=== PATIENT | female | born 1935 | race Caucasian/White ===

== ENCOUNTER 2016-06-29 08:42 | Inpatient (IN) | payer OTHER, MEDICAID ==
[2016-06-29] MEDS ORDERED: ONDANSETRON 4 MG/2 ML VIAL ONE (08:55)
[2016-06-29] MEDS ORDERED: NS 1,000 ML IV ONE ×2 (08:55→09:07)
--- NOTE | 2016-06-29 09:34 | CPEKG ---
Heart Rate: 59 RR Interval: 1017 P-R Interval: 168 QRSD Interval: 84 QT Interval: 460 QTC Interval: 456 P Juncos: 71 QRS Juncos: 49 T Wave Juncos: 67 EKG Severity - NORMAL ECG - EKG Impression: SINUS RHYTHM EKG Impression: Agree with above Electronically Signed By: Zane Noel 02-Jul-2016 18:37:58
--- NOTE | 2016-06-29 09:40 | EDPHY ---
HPI/HX/ROS/PE/MDM Narrative: CHIEF COMPLAINT: Possible GI bleed HPI: The patient is an 81 y/o female, with a history of recent GI bleed, arriving with her sons with concern for further GI bleeding. She has a history of carcinoid tumors and multiple surgeries related to this. Two weeks ago she had multiple syncopes and was admitted to [facility]. During that stay, endoscopy revealed an esophageal ulcer and small intestine bleeding. Her sons deny blood in her stool over the last week and report her Hgb increased from 7.2 to 10.0 during this time. Yesterday, she was feeling relative well and able to walk and engage in activities normally. This morning, she was weak, fatigued , and pale according to her sons. She has associated nausea and at least one episode of dry heaving. She did take her normal labetalol and aspirin this morning. She does not take anticoagulants. History obtained primarily from patient's sons as she does not speak Slovenian. They also translated discussion for patient. REVIEW OF SYSTEMS: Aside from elements discussed in the HPI, a comprehensive 10-point review of systems was reviewed and is negative. PMH: Hypertension - labetalol, carcinoid tumor, tumor surgeries x3, gastric bypass by Dr. Mccollum, cholecystectomy by Dr. Ross, esophageal ulcer, GI bleed - small intestine SOCIAL HISTORY: Sons at bedside, who are translating for the patient PHYSICAL EXAM: General:Patient appears tired and pale, but is sitting up in no acute distress. Initial BP 55/30 ENT:Eyes are normal to inspection. ENT inspection normal. Neck: Normal inspection. Full range of motion. Respiratory:No respiratory distress. Breath sounds normal bilaterally. Cardiovascular: Regular rate and rhythm. Strong peripheral pulses. Normal cap refill. Abdomen:The abdomen is nontender to palpation. There are no peritoneal signs. There are normal bowel sounds. Back: Normal to inspection. No tenderness to palpation. Skin: Pale. No rash. Warm and dry. Extremities: Normal appearance. Full range of motion. Neuro: Mentating appropriately. Normal motor function. Normal sensory function. ED Course: 849: Patient is hypotensive at 55/30 on initial assessment. She also appears pale and fatigued, but is still mentating appropriately. Her abdomen is benign. Plan for second IV if patient requires transfusion. Records from [facility]' s requested. 0855: ISTAT shows Hgb 11.9 and Hct 35. This makes it less likely her symptoms are due to blood loss. We will still type & screen her given her history of GI bleeds and pronounced hypotension. EKG ordered. Plan for admission as she will likely require another endoscope and close management of her pressure. 0900: The 12 lead EKG was interpreted by myself. Sinus rhythm rate 59. See hard copy and/or "tracemaster" electronic copy for interpretation. 0935: BP has improved to 105/46 after 800mL IV NS. 0956: Reassessed patient. She is resting comfortably. Her abdomen remains benign. Her BP has improved to 118/47. Labs show Hgb 9.9 and Hct 29. 1025: RN informs me patient has been increasing her labetalol dosing in the last few weeks, which could relate to her recent syncopes and symptoms today. 1035: Spoke with hospitalist service. Dr. Daily accepts admission. 1038: Spoke with RN from Dr. Ross office to update them on patient condition. They will consult on her during admission. I personally spent a total of 45 minutes of critical care time in obtaining history, performing a physical exam, bedside monitoring of interventions, collecting and interpreting tests and discussion with consultants but not including time spent performing procedures. This time was exclusive of any involvement by Physician Orthopaedic Physician Assistant. Organ system(s) at risk include: brain, cardiovascular system. MDM: This patient presents with severe hypotension and pallor in the setting of recent GI bleed. Somewhat surprisingly, her Hct is essentially unchanged, and given light brown stool present on patient's legs, I doubt her BP is secondary to acute blood loss. She is afebrile and has no infectious symptoms, so I highly doubt sepsis or septic shock. I suspect the etiology of patient's hypotension is likely over-beta blocking, not helped by taking a dose this morning. Her BP has responded well to IVNS. She will require admission for continued monitoring and workup. - Data Points Laboratory Results: Laboratory Results 06/29/16 09:40 06/29/16 09:55 06/29/16 06/29/16 06/29/16 09:55 09:55 09:55 WBC RBC Hgb POC Hgb Hct POC Hct MCV MCH MCHC RDW Plt Count MPV Neut % (Auto) Lymph % (Auto) [place] % (Auto) Eos % (Auto) Baso % (Auto) Nucleat RBC Rel Count Absolute Neuts (auto) Absolute Lymphs (auto) Absolute Monos (auto) Absolute Eos (auto) Absolute Basos (auto) Absolute Nucleated RBC Immature Gran % Immature Gran # PT 15.1 SEC H SEC (12.0-15.0) INR 1.19 H (0.83-1.16) APTT 23.0 SEC SEC (23.0-38.0) POC Sodium Sodium 144 mEq/L mEq/L (134-144) POC Potassium Potassium 4.2 mEq/L mEq/L (3.5-5.2) POC Chloride Chloride 111 mEq/L H mEq/L (97-110) Carbon Dioxide 23 mEq/l mEq/l (22-31) Anion Gap 10 mEq/L mEq/L (8-16) POC BUN BUN 17 mg/dL mg/dL (7-23) Creatinine 1.0 mg/dL mg/dL (0.6-1.0) POC Creatinine Estimated GFR 53 Glucose 105 mg/dL H mg/dL (70-100) POC Glucose Calcium 8.7 mg/dL mg/dL (8.5-10.4) Troponin I < 0.012 ng/mL ng/mL (0-0.034) Patient ABO/Rh A POSITIVE Antibody Screen NEGATIVE 06/29/16 06/29/16 06/29/16 09:40 09:32 08:56 WBC 4.19 10^3/uL 10^3/uL (3.80-9.50) RBC 3.24 10^6/uL L 10^6/uL (4.18-5.33) Hgb 9.8 g/dL L g/dL (12.6-16.3) POC Hgb 9.9 gm/dL L gm/dL 11.9 gm/dL L gm/dL (12.3-15.9) (12.3-15.9) Hct 31.9 % L % (38.0-47.0) POC Hct 29 % L % 35 % L % (35.5-47.5) (35.5-47.5) MCV 98.5 fL fL (81.5-99.8) MCH 30.2 pg pg (27.9-34.1) MCHC 30.7 g/dL L g/dL (32.4-36.7) RDW 14.6 % % (11.5-15.2) Plt Count 217 10^3/uL 10^3/uL (150-400) MPV 10.5 fL fL (8.7-11.7) Neut % (Auto) 74.2 % % (39.3-74.2) Lymph % (Auto) 16.7 % % (15.0-45.0) Nobles % (Auto) 5.7 % % (4.5-13.0) Eos % (Auto) 2.4 % % (0.6-7.6) Baso % (Auto) 0.5 % % (0.3-1.7) Nucleat RBC Rel Count 0.0 % % (0.0-0.2) Absolute Neuts (auto) 3.11 10^3/uL 10^3/uL (1.70-6.50) Absolute Lymphs (auto) 0.70 10^3/uL L 10^3/uL (1.00-3.00) Absolute Monos (auto) 0.24 10^3/uL L 10^3/uL (0.30-0.80) Absolute Eos (auto) 0.10 10^3/uL 10^3/uL (0.03-0.40) Absolute Basos (auto) 0.02 10^3/uL 10^3/uL (0.02-0.10) Absolute Nucleated RBC 0.00 10^3/uL 10^3/uL (0-0.01) Immature Gran % 0.5 % % (0.0-1.1) Immature Gran # 0.02 10^3/uL 10^3/uL (0.00-0.10) PT INR APTT POC Sodium 144 mEq/L mEq/L 145 mEq/L H mEq/L (134-144) (134-144) Sodium POC Potassium 5.7 mEq/L H mEq/L 4.0 mEq/L mEq/L (3.3-5.0) (3.3-5.0) Potassium POC Chloride 111 mEq/L H mEq/L 108 mEq/L mEq/L (96-108) (96-108) Chloride Carbon Dioxide Anion Gap POC BUN 21 mg/dL mg/dL 18 mg/dL mg/dL (7-23) (7-23) BUN Creatinine POC Creatinine 1.1 mg/dL mg/dL 1.2 mg/dL mg/dL (0.6-1.2) (0.6-1.2) Estimated GFR Glucose POC Glucose 123 mg/dL H mg/dL 144 mg/dL H mg/dL (70-100) (70-100) Calcium Troponin I Patient ABO/Rh Antibody Screen Medications Given: Discontinued Medications Sodium Chloride (Ns) 1,000 mls @ 0 mls/hr IV ONCE ONE PRN Reason: Wide Open Stop: 06/29/16 08:56 Last Admin: 06/29/16 09:00 Dose: 1,000 mls Sodium Chloride (Ns) 1,000 mls @ 0 mls/hr IV ONCE ONE PRN Reason: Wide Open Stop: 06/29/16 09:08 Last Admin: 06/29/16 09:10 Dose: 1,000 mls Point of Care Test Results: 06/29/16 06/29/16 08:56 09:32 POC Sodium 145 H 144 POC Potassium 4.0 5.7 H POC Chloride 108 111 H POC BUN 18 21 POC Creatinine 1.2 1.1 POC Glucose 144 H 123 H General Time Seen by Provider: 06/29/16 08:51 Initial Vital Signs: Initial Vital Signs Temperature (C) 36.8 C 06/29/16 08:45 Heart Rate 64 06/29/16 08:45 Respiratory Rate 22 H 06/29/16 08:45 O2 Sat (%) 98 06/29/16 08:45 O2 Delivery Mode Nasal Cannula O2 (L/minute) 2 Allergies/Adverse Reactions: b12 Allergy (Uncoded 06/29/16 08:44) Home Medications: Medication Instructions Recorded Aspirin [Aspirin 81mg (*)] 81 mg PO DAILY 06/29/16 Ferrous Sulfate [Ferrous Sulf 325 325 mg PO DAILY 06/29/16 MG (*)] Herbals/Supplements -Info Only 1 ea PO DAILY 06/29/16 Labetalol HCl [Trandate 200 mg (*)] 200 mg PO BID 06/29/16 Losartan Potassium [Cozaar 50 mg 50 mg PO DAILY@12 06/29/16 (*)] Multivitamins [Multivitamin (*)] 1 each PO DAILY 06/29/16 [place]-3 Fatty Acids [Fish Oil 1000 1,000 mg PO DAILY 06/29/16 mg (*)] Departure - Departure Disposition: [facility] Inpatient Acute Clinical Impression: Hypotension Qualifiers: Hypotension type: other hypotension type Qualified Code(s): I95.89 - Other hypotension Anemia Qualifiers: Anemia type: other cause Other causes of anemia: other cause, not classified Qualified Code(s): D64.89 - Other specified anemias Condition: Fair Report Scribed for: Efra Subramanian Report Scribed by: Jael Mendez Date of Report: 06/29/16 Time of Report: 09:40 Physician Review and Approval Statement: Portions of this note were transcribed by an ED scribe. I personally performed the history, physical exam, and medical decision making; and confirm the accuracy of the information in the transcribed note.
[2016-06-29 09:45] LABS: % IMMATURE GRANULYOCYTES 0.5 % (0.0-1.1); ABSOLUTE IMMATURE GRANULOCYTES 0.02 10^3/uL (0.00-0.10); ADD DIFF? NO; ADD MORPH? NO; ADD SCAN? NO; ATYPICAL LYMPHOCYTE FLAG 20 (0-99); FRAGMENT RBC FLAG 0 (0-99); HEMATOCRIT 31.9 % (38.0-47.0); HEMOGLOBIN 9.8 g/dL (12.6-16.3); LEFT SHIFT FLG 0 (0-99); LIPEMIA HEMOLYSIS FLAG 80 (0-99); MEAN CELL HEMOGLOBIN 30.2 pg (27.9-34.1); MEAN CELL HEMOGLOBIN CONCENTR. 30.7 g/dL (32.4-36.7); MEAN CELL VOLUME 98.5 fL (81.5-99.8); MEAN PLATELET VOLUME 10.5 fL (8.7-11.7); PLATELET CLUMPS FLAG 0 (0-99); PLATELET COUNT 217 10^3/uL (150-400); RED BLOOD CELL COUNT 3.24 10^6/uL (4.18-5.33); RED CELL DISTRIBUTION WIDTH 14.6 % (11.5-15.2)
[2016-06-29 10:40] LABS: INR 1.19 (0.83-1.16); PROTIME(PATIENT) 15.1 SEC (12.0-15.0)
[2016-06-29 10:50] LABS: ANION GAP 10 mEq/L (8-16); CALCIUM 8.7 mg/dL (8.5-10.4); CARBON DIOXIDE 23 mEq/l (22-31); CHLORIDE 111 mEq/L (97-110); GLOMERULAR FILTRATION RATE 53; GLUCOSE 105 mg/dL (70-100); POTASSIUM 4.2 mEq/L (3.5-5.2); SODIUM 144 mEq/L (134-144)
[2016-06-29 11:00] LABS: TROPONIN I < 0.012 ng/mL (0-0.034)
[2016-06-29] MEDS ORDERED: ACETAMINOPHEN 325 MG TAB PO PRN (12:03)
[2016-06-29] MEDS ORDERED: ONDANSETRON 4 MG/2 ML VIAL IVP PRN (12:03)
[2016-06-29] MEDS ORDERED: ONDANSETRON DISINTEGRATING 4 MG TAB PO PRN (12:03)
--- NOTE | 2016-06-29 12:26 | PDGENHP ---
History and Physical - Chief Complaint Acute weakness - History of Present Illness Primary care provider: Dr. Gracia Primary senior engineer: Dr. Stoddard Primary general surgeon: Dr. Ross HPI: 81-year-old female presenting with acute weakness characterized as generalized fatigue with associated nausea, dry heaving, pale appearance, onset of symptoms on the morning of presentation and duration persistent thereafter. Patient had reportedly been feeling well on the day prior to this presentation. Weakness was exacerbated by attempting to ambulate and engaging in any activity. The patient took her last dose of losartan yesterday her last dose of labetalol this morning. She has had 1 brown bowel movement. She was eating and drinking normally prior to onset of symptoms. Notably, she was discharged from [facility] yesterday. History Information - Allergies/Home Medication List Allergies/Adverse Reactions: b12 Allergy (Uncoded 06/29/16 08:44) Home Medications: Aspirin [Aspirin 81mg (*)] 81 mg PO DAILY 06/29/16 [Last Taken 06/29/16] Ferrous Sulfate [Ferrous Sulf 325 MG (*)] 325 mg PO DAILY 06/29/16 [Last Taken Unknown] Herbals/Supplements -Info Only 1 ea PO DAILY 06/29/16 [Last Taken Unknown] Labetalol HCl [Trandate 200 mg (*)] 200 mg PO BID 06/29/16 [Last Taken 06/29/16] Losartan Potassium [Cozaar 50 mg (*)] 50 mg PO DAILY@12 06/29/16 [Last Taken ] Multivitamins [Multivitamin (*)] 1 each PO DAILY 06/29/16 [Last Taken Unknown] [place]-3 Fatty Acids [Fish Oil 1000 mg (*)] 1,000 mg PO DAILY 06/29/16 [Last Taken Unknown] I have personally reviewed and updated: family history, medical history, social history, surgical history - Past Medical History hypertension (Challenging to control) Additional medical history: Carcinoid tumor. Esophageal ulcer. Acute blood loss anemia most recent hemoglobin level 10 - Surgical History Reports: cholecystectomy Additional surgical history: Gastric bypass. Tumor surgery x3 - Family History Additional family history: No recent sick family contacts - Social History Smoking Status: Never smoked Alcohol Use: None Drug Use: None Additional social history: Lives with her son, normally independent in ADLs Review of Systems ROS: 10pt was reviewed & negative except for what was stated in HPI & below Constitutional: Reports: weakness, other (Fatigue) Gastrointestinal: Reports: vomitting, nausea Physical Exam Temp Pulse Resp BP Pulse Ox 37.2 C 61 15 128/80 H 97 06/29/16 12:00 06/29/16 12:00 06/29/16 12:00 06/29/16 12:00 06/29/16 12:00 O2 (L/minute) 2 Constitutional: no apparent distress, appears nourished, not in pain Eyes: PERRL, anicteric sclera, EOMI Ears, Nose, Mouth, Throat: moist mucous membranes, hearing normal, ears appear normal, no oral mucosal ulcers Cardiovascular: regular rate and rhythym, systolic murmur (2/6 at the sternum), No tachycardia, No edema Respiratory: no respiratory distress, no rales or rhonchi, clear to auscultation Gastrointestinal: normoactive bowel sounds, soft, non-tender abdomen, no palpable masses Genitourinary: no bladder fullness, no bladder tenderness Neurologic: AAOx3, sensation intact bilaterally, No weakness (Motor strength 5/ 5 bilaterally) Psychiatric: interacting appropriately, not anxious, not encephalopathic, thought process linear Lymph, Heme, Immunologic: no cervical LAD, no supraclavicular LAD Lab Data & Imaging Review 06/29/16 09:40 06/29/16 09:55 WBC 4.19 10^3/uL (3.80-9.50) 06/29/16 09:40 RBC 3.24 10^6/uL (4.18-5.33) L 06/29/16 09:40 Hgb 9.8 g/dL (12.6-16.3) L 06/29/16 09:40 POC Hgb 9.9 gm/dL (12.3-15.9) L 06/29/16 09:32 Hct 31.9 % (38.0-47.0) L 06/29/16 09:40 POC Hct 29 % (35.5-47.5) L 06/29/16 09:32 MCV 98.5 fL (81.5-99.8) 06/29/16 09:40 MCH 30.2 pg (27.9-34.1) 06/29/16 09:40 MCHC 30.7 g/dL (32.4-36.7) L 06/29/16 09:40 RDW 14.6 % (11.5-15.2) 06/29/16 09:40 Plt Count 217 10^3/uL (150-400) 06/29/16 09:40 MPV 10.5 fL (8.7-11.7) 06/29/16 09:40 Neut % (Auto) 74.2 % (39.3-74.2) 06/29/16 09:40 Lymph % (Auto) 16.7 % (15.0-45.0) 06/29/16 09:40 [place] % (Auto) 5.7 % (4.5-13.0) 06/29/16 09:40 Eos % (Auto) 2.4 % (0.6-7.6) 06/29/16 09:40 Baso % (Auto) 0.5 % (0.3-1.7) 06/29/16 09:40 Nucleat RBC Rel Count 0.0 % (0.0-0.2) 06/29/16 09:40 Absolute Neuts (auto) 3.11 10^3/uL (1.70-6.50) 06/29/16 09:40 Absolute Lymphs (auto) 0.70 10^3/uL (1.00-3.00) L 06/29/16 09:40 Absolute Monos (auto) 0.24 10^3/uL (0.30-0.80) L 06/29/16 09:40 Absolute Eos (auto) 0.10 10^3/uL (0.03-0.40) 06/29/16 09:40 Absolute Basos (auto) 0.02 10^3/uL (0.02-0.10) 06/29/16 09:40 Absolute Nucleated RBC 0.00 10^3/uL (0-0.01) 06/29/16 09:40 Immature Gran % 0.5 % (0.0-1.1) 06/29/16 09:40 Immature Gran # 0.02 10^3/uL (0.00-0.10) 06/29/16 09:40 PT 15.1 SEC (12.0-15.0) H 06/29/16 09:55 INR 1.19 (0.83-1.16) H 06/29/16 09:55 APTT 23.0 SEC (23.0-38.0) 06/29/16 09:55 POC Sodium 144 mEq/L (134-144) 06/29/16 09:32 Sodium 144 mEq/L (134-144) 06/29/16 09:55 POC Potassium 5.7 mEq/L (3.3-5.0) H 06/29/16 09:32 Potassium 4.2 mEq/L (3.5-5.2) 06/29/16 09:55 POC Chloride 111 mEq/L (96-108) H 06/29/16 09:32 Chloride 111 mEq/L (97-110) H 06/29/16 09:55 Carbon Dioxide 23 mEq/l (22-31) 06/29/16 09:55 Anion Gap 10 mEq/L (8-16) 06/29/16 09:55 POC BUN 21 mg/dL (7-23) 06/29/16 09:32 BUN 17 mg/dL (7-23) 06/29/16 09:55 Creatinine 1.0 mg/dL (0.6-1.0) 06/29/16 09:55 POC Creatinine 1.1 mg/dL (0.6-1.2) 06/29/16 09:32 Estimated GFR 53 06/29/16 09:55 Glucose 105 mg/dL (70-100) H 06/29/16 09:55 POC Glucose 123 mg/dL (70-100) H 06/29/16 09:32 Calcium 8.7 mg/dL (8.5-10.4) 06/29/16 09:55 Troponin I < 0.012 ng/mL (0-0.034) 06/29/16 09:55 Patient ABO/Rh A POSITIVE 06/29/16 09:55 Antibody Screen NEGATIVE 06/29/16 09:55 Visualized and Interpreted EKG results: Yes EKG Interpretation: Positive for: other (Normal sinus rhythm) Assessment & Plan Assessment: 81-year-old female presenting with acute hypotension in the setting of recent gastrointestinal hemorrhage Plan: 1. Hypotension. Acute, new problem this provider, further workup is indicated. Evidenced by systolic blood pressure 55 on presentation, receiving 800 cc of normal saline thereafter, resulting in a systolic blood pressure of 105. -suspect this is medication induced and secondary to the cumulative effects of her ARB and beta-willian in the setting of recent up titration of beta-willian, discussed with emergency provider Dr. Efra Subramanian, we both agree that this is the most likely etiology -monitor on telemetry for any arrhythmias -if systolic blood pressure drops again, get venous lactic acid level -continue on normal saline at 100 cc an hour -hold antihypertensive medications -monitor closely for gastrointestinal hemorrhage 2. Recent gastrointestinal hemorrhage. Reportedly secondary to a mid GI bleed, noted on capsule endoscopy, refractory to colonoscopy and EGD -hold on CT angiography given that the patient does not appear to have any evidence of active bleeding -outside records ordered through the emergency department for most recent [facility] discharge summary -continue to monitor serum hemoglobin level and monitor bowel movements closely -will get further imaging with CT angiography if she has any melena, hematochezia, decline in her hemoglobin level -no indication for transfusion at this time 3. Chronic anemia. Most likely secondary to a combination of carcinoid tumor as well as intermittent, chronic blood loss -reviewed outside records including 06/07/2016 hemoglobin level of 9.4 Diet. Regular Prophylaxis. High risk patient, SCDs, pharm contraindicated given recent bleed Code. Limited resuscitation with no CPR intubation, her son for Flash is her MPOA Disposition. Anticipated discharge is 06/30/2016, pending further workup and monitoring above. She requires greater than 48 hours inpatient hospitalization or experiences any other complications, then she will be upgraded to inpatient admission status at that time.
[2016-06-29] MEDS ORDERED: NS 1,000 ML IV SCH (12:45)
--- NOTE | 2016-06-29 16:36 | SOAPPROG ---
SOAP Progress Note Assessment/Plan: Assessment: A 81-YEAR-OLD FEMALE WITH SYNCOPE AND HYPERTENSION / PRESENTLY STABLE VITAL SIGNS AND NO SIGNS OF INTERNAL BLEEDING ABDOMEN IS SOFT NONTENDER HEMATOCRIT IS STABLE Plan: OBSERVATION 06/29/16 16:35 Objective: Vital Signs Temp Pulse Resp BP Pulse Ox 37.2 C 61 15 128/80 H 97 06/29/16 12:00 06/29/16 12:00 06/29/16 12:00 06/29/16 12:00 06/29/16 12:00 06/28/16 06/29/16 06/30/16 05:59 05:59 05:59 Intake Total 1999 Balance 1999 PT 15.1 SEC (12.0-15.0) H 06/29/16 09:55 INR 1.19 (0.83-1.16) H 06/29/16 09:55 ICD10 Worksheet Patient Problems: Problems Problem Status Onset Anemia Acute Hypotension Acute
[2016-06-29 18:24] LABS: HEMATOCRIT 28.4 % (38.0-47.0); HEMOGLOBIN 9.1 g/dL (12.6-16.3)
[2016-06-30 05:08] LABS: % IMMATURE GRANULYOCYTES 0.3 % (0.0-1.1); ABSOLUTE IMMATURE GRANULOCYTES 0.02 10^3/uL (0.00-0.10); ADD DIFF? NO; ADD MORPH? NO; ADD SCAN? NO; ATYPICAL LYMPHOCYTE FLAG 10 (0-99); FRAGMENT RBC FLAG 0 (0-99); HEMOGLOBIN 8.6 g/dL (12.6-16.3); LEFT SHIFT FLG 0 (0-99); LIPEMIA HEMOLYSIS FLAG 80 (0-99); MEAN CELL HEMOGLOBIN CONCENTR. 31.9 g/dL (32.4-36.7); MEAN CELL VOLUME 97.5 fL (81.5-99.8); MEAN PLATELET VOLUME 10.7 fL (8.7-11.7); PLATELET CLUMPS FLAG 10 (0-99); PLATELET COUNT 226 10^3/uL (150-400); RED BLOOD CELL COUNT 2.77 10^6/uL (4.18-5.33); RED CELL DISTRIBUTION WIDTH 14.2 % (11.5-15.2)
[2016-06-30 05:23] LABS: ANION GAP 7 mEq/L (8-16); CALCIUM 8.8 mg/dL (8.5-10.4); CARBON DIOXIDE 21 mEq/l (22-31); CHLORIDE 116 mEq/L (97-110); CREATININE 0.8 mg/dL (0.6-1.0); GLOMERULAR FILTRATION RATE > 60; GLUCOSE 90 mg/dL (70-100); SODIUM 144 mEq/L (134-144)
[2016-06-30] MEDS: OMEGA-3 FATTY ACIDS 1,000 MG CAP PO SCH (07:51)
[2016-06-30] MEDS: MULTIVITAMINS 1 EACH TAB PO SCH (07:51)
[2016-06-30] MEDS: FERROUS SULFATE 325 MG TAB PO SCH (07:52)
[2016-06-30] MEDS ORDERED: Herbals/Supplements -Info Only PO SCH (09:00)
[2016-06-30] MEDS: LABETALOL HCL 200 MG TAB PO SCH ×2 (10:21→19:26)
[2016-06-30] MEDS: LOSARTAN POTASSIUM 50 MG TAB PO SCH ×2 (11:58→14:26)
--- NOTE | 2016-06-30 15:52 | HOSPPROG ---
Hospitalist Progress Note Assessment/Plan: Assessment: 81-year-old female presenting with acute hypotension in the setting of recent gastrointestinal hemorrhage Plan: 1. Hypotension. Acute, 2/2 over-medication in setting of recently resolved GIB - reintroduced half dosages of home Rx (labetolol 100mg 2xd and losartan 25mg daily @ noon) - monitor for additional 24hrs to ensure that these do not result in recurrent hypotension, do not undertreat long standing hypertension - counseled son/patient to get immediate f/u w/ Dr. Stoddard, who may consider either outpt ambulatory BP monitoring vs. linq 2. Recent gastrointestinal hemorrhage. Reportedly secondary to a mid GI bleed, noted on capsule endoscopy, refractory to colonoscopy and EGD - get OB on next stools given declining Hgb 3. Chronic anemia. Most likely secondary to a combination of carcinoid tumor as well as intermittent, chronic blood loss - dropping Hgb level despite nl appearing stools - repeat Hgb in AM, transfuse if < 8 - get FOB - counseled son/patient to get immediate f/u w/ Dr. Jefferson as outpt Diet. Regular Prophylaxis. High risk patient, SCDs, pharm contraindicated given recent bleed Code. Limited resuscitation with no CPR intubation, her son for Flash is her MPOA Disposition. Anticipated LOS > 48hrs warranting inpatient admission status for reasonable medical necessity including active co-morbid, high risk conditions including hypotension, recent recurrent syncope, anemia and recent GI bleed, requiring additional monitoring as inpatient while making medication adjustments. Subjective: Patient has been ambulated doing well and has had 2 normal bowel Objective: Vital Signs Temp Pulse Resp BP Pulse Ox 36.6 C 68 18 146/67 H 94 06/30/16 11:52 06/30/16 13:00 06/30/16 11:52 06/30/16 13:00 06/30/16 13:00 Laboratory Results 06/30/16 04:21 06/30/16 04:21 06/29/16 06/30/16 07/01/16 05:59 05:59 05:59 Intake Total 3932 Balance 3932 PT 15.1 SEC (12.0-15.0) H 06/29/16 09:55 INR 1.19 (0.83-1.16) H 06/29/16 09:55 - Time Spent With Patient Time Spent with Patient: greater than 35 minutes Time Spent with Patient: Greater than 35 minutes spent on this patients care, greater than 50% of time spent counseling, educating, and coordinating care regarding the above mentioned plan. - Physical Exam Constitutional: no apparent distress, appears nourished, not in pain Cardiovascular: regular rate and rhythym, no murmur, rub, or gallop Respiratory: no respiratory distress, no rales or rhonchi, clear to auscultation Gastrointestinal: normoactive bowel sounds, soft, non-tender abdomen, no palpable masses ICD10 Worksheet Patient Problems: Problems Problem Status Onset Hypotension Acute Anemia Acute
[2016-07-01 03:58] LABS: HEMATOCRIT 26.3 % (38.0-47.0); HEMOGLOBIN 8.2 g/dL (12.6-16.3)
[2016-07-01 08:07] VITALS: RESP 18
[2016-07-01] MEDS: LABETALOL HCL 200 MG TAB PO SCH (08:24)
[2016-07-01] MEDS: MULTIVITAMINS 1 EACH TAB PO SCH (08:26)
[2016-07-01] MEDS: FERROUS SULFATE 325 MG TAB PO SCH (08:26)
[2016-07-01] MEDS: OMEGA-3 FATTY ACIDS 1,000 MG CAP PO SCH (08:26)
[2016-07-01] MEDS ORDERED: LOSARTAN POTASSIUM 50 MG TAB PO SCH (09:03)
[2016-07-01 12:10] VITALS: BP 172/64; PULSE 69; TEMP 98; O2SAT 97
--- NOTE | 2016-07-01 13:44 | PDIAF ---
- Diagnosis Diagnosis: Hypotension 2/2 BP Rx, Anemia from middle GI bleed Code Status: Limited Resuscitation - Medication Management Discharge Medications: Medications to Continue on Transfer Aspirin [Aspirin 81mg (*)] 81 mg PO DAILY 06/29/16 [Last Taken 06/29/16] Ferrous Sulfate [Ferrous Sulf 325 MG (*)] 325 mg PO DAILY 06/29/16 [Last Taken Unknown] Herbals/Supplements -Info Only 1 ea PO DAILY 06/29/16 [Last Taken Unknown] Losartan Potassium [Cozaar 50 mg (*)] 50 mg PO DAILY@12 06/29/16 [Last Taken ] Multivitamins [Multivitamin (*)] 1 each PO DAILY 06/29/16 [Last Taken Unknown] [place]-3 Fatty Acids [Fish Oil 1000 mg (*)] 1,000 mg PO DAILY 06/29/16 [Last Taken Unknown] Acetaminophen [Tylenol 325mg (*)] 650 mg PO Q4HRS PRN #0 tab 07/01/16 [Last Taken Unknown] Labetalol HCl [Trandate 100 mg (*)] 100 mg PO BID #60 tab 07/01/16 [Last Taken Unknown] Plant Taxonomy Teacher Antibiotics: NA Discharge Medications: Refer to the Discharge Home Medication list for PRN reason. PICC Care - Routine: N/A - Orders Services needed: Home Care, Registered Nurse, Physical Therapy Home Care Face to Face: I certify that this patient was under my care and that I had the required [id number] encounter meeting the encounter requirements on the discharge day. My findings support the fact that the patient is homebound as defined in CMS Chapter 7 Medicare Benefits Manual 30.1.1, The condition of the patient is such that there exists a normal inability to leave home and consequently, leaving home would require a considerable and taxing effort. Oxygen: NA Diet Recommendation: cardiac -low fat low salt Petty: Not applicable Activity/Weight Bearing Restrictions: as tolerates - Labs/Radiology HCT/HGB Date: 07/04/16 Call or Fax Lab and Imaging Results to: Richi Anderson Kaye, [place] - Follow Up Care Current Providers and Referrals: Juan José Jefferson MD, FACG [Medical Doctor] - Sai Gracia MD [Medical Doctor] - NONE *PRIMARY CARE P,. [Primary Care Provider] - As per Instructions Benji Stoddard MD [Medical Doctor] -
--- NOTE | 2016-07-01 14:07 | PDIAF ---
- Diagnosis Diagnosis: Hypotension 2/2 BP Rx, Anemia from middle GI bleed Code Status: Limited Resuscitation - Medication Management Discharge Medications: Medications to Continue on Transfer Aspirin [Aspirin 81mg (*)] 81 mg PO DAILY 06/29/16 [Last Taken 06/29/16] Ferrous Sulfate [Ferrous Sulf 325 MG (*)] 325 mg PO DAILY 06/29/16 [Last Taken Unknown] Herbals/Supplements -Info Only 1 ea PO DAILY 06/29/16 [Last Taken Unknown] Losartan Potassium [Cozaar 50 mg (*)] 50 mg PO DAILY@12 06/29/16 [Last Taken ] Multivitamins [Multivitamin (*)] 1 each PO DAILY 06/29/16 [Last Taken Unknown] [place]-3 Fatty Acids [Fish Oil 1000 mg (*)] 1,000 mg PO DAILY 06/29/16 [Last Taken Unknown] Acetaminophen [Tylenol 325mg (*)] 650 mg PO Q4HRS PRN #0 tab 07/01/16 [Last Taken Unknown] Labetalol HCl [Trandate 100 mg (*)] 100 mg PO BID #60 tab 07/01/16 [Last Taken Unknown] Anthropologist Physical Antibiotics: NA Discharge Medications: Refer to the Discharge Home Medication list for PRN reason. PICC Care - Routine: N/A - Orders Services needed: Home Care, Registered Nurse, Physical Therapy Home Care Face to Face: I certify that this patient was under my care and that I had the required [id number] encounter meeting the encounter requirements on the discharge day. My findings support the fact that the patient is homebound as defined in CMS Chapter 7 Medicare Benefits Manual 30.1.1, The condition of the patient is such that there exists a normal inability to leave home and consequently, leaving home would require a considerable and taxing effort. Oxygen: NA Diet Recommendation: cardiac -low fat low salt Petty: Not applicable Activity/Weight Bearing Restrictions: as tolerates - Labs/Radiology CBC Date: 07/04/16 CMP Date: 07/04/16 Other Lab Name, Date and Time: BNP on 07/04/16 Call or Fax Lab and Imaging Results to: Richi Anderson Kaye, [place] - Follow Up Care Current Providers and Referrals: Juan José Jefferson MD, FACG [Medical Doctor] - Sai Gracia MD [Medical Doctor] - NONE *PRIMARY CARE P,. [Primary Care Provider] - As per Instructions Benji Stoddard MD [Medical Doctor] -
--- NOTE | 2016-07-01 14:29 | PDDCSUM ---
Discharge Summary Discharge Summary: DISCHARGE SUMMARY FOLLOW-UP ITEMS: Repeat CBC, CMP, BNP 07/04 with results to providers DATE OF ADMISSION: 06/29/2016 DATE OF DISCHARGE: 07/01/2016 DISCHARGE DIAGNOSES: 1. Acute hypotension 2. Recent gastrointestinal hemorrhage 3. Chronic anemia 4. Chronic hypertension 5. Acute syncope CONSULTATIONS: None PROCEDURES / IMAGING: None CHIEF COMPLAINT: Acute syncope SUBJECTIVE: Patient is feeling well at time of discharge, she is ambulating around the room , she is able to shower herself, her bowel movements are green/brown PHYSICAL EXAM ON DISCHARGE: Systolic blood pressure is 140-170, heart rate in the 60-70 range, pain level 0/ 10, ambulating steadily LABS ON DISCHARGE: Hemoglobin 8.2 HOSPITAL COURSE BY PROBLEM: 1. Acute hypotension. Resulting in acute syncope, secondary to over medication in the setting of recently resolved GI bleed. I reviewed her recent records from [facility] and was difficult to ascertain whether she had been receiving her home dosages of labetalol and losartan while she was hospitalized at [facility]. That being said, she was initiated on labetalol 200 mg twice daily and losartan 50 mg once daily at the time of discharge. These medications most likely resulted in hypotension resulting in syncope and presentation. We held her medications and provide her with IV fluids and her blood pressure normalized. 2. Recent gastrointestinal hemorrhage. This is reportedly secondary to a mid gastrointestinal bleed, without any discrete findings on upper endoscopy or colonoscopy recently performed by Dr. Jones. Capsule endoscopy was recently performed which reportedly demonstrated mid GI bleed. She did not have any evidence of ongoing bleeding during this hospitalization and her decline in hemoglobin level from around 10 to 8.2 is most likely hemodilutional as her bowel movements have been greenish brown throughout this hospitalization. We would recommend repeat CBC on 07/04 and close outpatient GI follow-up. She may require outpatient push enteroscopy which could be arranged through [facility]. 3. Chronic anemia. 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 Her hemoglobin level did not precipitously dropped during this hospitalization and as mentioned above, it was most likely hemodilutional. She did not require a blood transfusion and for this issue I would recommend close outpatient GI and Hematology follow-up. 4. Chronic hypertension. The patient does have chronic hypertension and has reportedly recently been increased on her labetalol. Given that it is likely that her presenting symptoms were related to overmedication, recommended that the discharge dosage of labetalol be half of her presenting dosage. I recommend she continue taking losartan 50 mg daily. Her blood pressure values fluctuated between 140-170 during this hospitalization but that was prior to reintroducing her losartan at the after mentioned dosage. I recommended that the patient's son maintain a daily blood pressure log and he presents to Dr. Pineda this week during outpatient follow-up. Given that the patient is not actively bleeding and she is not experiencing any symptoms, it is safe to discharge her with a systolic blood pressure around 170 with medication up titration. DISCHARGE MEDICATIONS: Please see official discharge medication reconciliation sheet in chart , reduction in labetalol to 100 mg twice daily, continuation of losartan 50 mg once daily, continue aspirin 81 mg daily DISCHARGE INSTRUCTIONS: Please have labs drawn on 07/04 and follow up with [facility] on 07/05. Please schedule follow up with Dr. Jefferson in the short term. TIME SPENT: Greater than 30 minutes were spent on direct patient care, as well as discharge planning and preparation.
== END 2016-07-01 15:02 | disposition home health service (06) | DRG 312 ==
LOC: UNDOADMOB 11:10 → F2W 13:20 → OBSVTOIN 06-30 15:53
PROVIDERS: ADMIT Internal Medicine; ATTEND Internal Medicine
DX: I95.2 Hypotension due to drugs (principal); T44.8X5A Adverse effect of centrally-acting and adrenergic-neuron-blocking agents, initial encounter; T46.905A Adverse effect of unspecified agents primarily affecting the cardiovascular system, initial encounter; R55 Syncope and collapse; I10 Essential (primary) hypertension; D50.0 Iron deficiency anemia secondary to blood loss (chronic); C7A.00 Malignant carcinoid tumor of unspecified site
CPT/HCPCS: 82947-QW; 97165-GO; 97535-GO; G0378; G8987-GO-CI; G8988-GO-CI; G8989-GO-CI; J2405